=== PATIENT | female | born 1965 | race Caucasian/White ===

== ENCOUNTER 2021-07-26 20:34 | Emergency (ER) | payer MEDICAID ==
[~2021-07-26] VITALS: Ht 154.9 cm; Wt 61.7 kg
--- NOTE | 2021-07-26 21:24 | NUR ---
Pt resting in bed, respirations equal and unlabored. Denies pain at this time. Able to communicate needs. All extremities WNL
[2021-07-26 22:39] LABS: HEMATOCRIT 31.2 % (31.2-41.9); MEAN CORPUSCULAR HEMOGLOBIN 27.3 uug (24.7-32.8); PLATELET COUNT (AUTO) 324 K/uL (179-408)
[2021-07-26 22:54] LABS: BILIRUBIN,TOTAL 0.3 mg/dL (0.2-1.0); CREATININE 0.6 mg/dL (0.6-1.3); MAGNESIUM 1.8 mg/dL (1.8-2.4); POTASSIUM 3.8 mmol/L (3.5-5.1); TOTAL PROTEIN, SERUM 7.4 g/dL (6.4-8.2)
[2021-07-27] MEDS ORDERED: IV NS 1000 ML 1,000 ML IV ONE ×2 (00:15)
--- NOTE | 2021-07-27 01:20 | NUR ---
Called [facility] to come evaluate patient.
[2021-07-27] MEDS ORDERED: HALOPERIDOL LACTATE 5 MG/1 ML VIAL ONE (03:52)
[2021-07-27] MEDS ORDERED: LORAZEPAM 2 MG/1 ML VIAL ONE (03:53)
[2021-07-27] MEDS ORDERED: risperiDONE 1 MG TABLET ONE (04:06)
--- NOTE | 2021-07-27 04:30 | NUR ---
[facility], Ativan 2mg IV and Haldol 5mg IV given per Dr. Foster's orders at 0417H, no adverse effects noted.
--- NOTE | 2021-07-27 06:14 | NUR ---
CALLED [facility]KE WITH [facility]ANNE, ETA OF 75-90 MINS. PT WILL BE TAKEN TO [facility].
--- NOTE | 2021-07-27 07:57 | NUR ---
Patient is sleepy, arouses easily. She denies pain or any other complaints. [facility] here to transport patient other facility.
== END 2021-07-27 08:18 ==
LOC: ER 20:46
DX: F29 Unspecified psychosis not due to a substance or known physiological condition (principal); E86.0 Dehydration; D64.9 Anemia, unspecified; J98.4 Other disorders of lung; R94.31 Abnormal electrocardiogram [ECG] [EKG]; F20.9 Schizophrenia, unspecified; G40.909 Epilepsy, unspecified, not intractable, without status epilepticus; Z88.6 Allergy status to analgesic agent; Z88.0 Allergy status to penicillin; Z88.8 Allergy status to other drugs, medicaments and biological substances; Z20.822 Contact with and (suspected) exposure to COVID-19
CPT/HCPCS: 36415; 71045; 80053; 82607; 83735; 85025; 87426; 93005; 96374; 96375; 99285; J1630; J2060; J7040; A4663